=== PATIENT | male | born 1985 | race African-American/Black ===

== ENCOUNTER 2020-02-19 09:53 | Emergency (ER) | payer OTHER ==
[~2020-02-19] VITALS: Ht 175.3 cm; Wt 81.7 kg
[2020-02-19 10:22] LABS: ABSOLUTE EOSINOPHILS 0.1 thou/uL (0.0-0.7); ABSOLUTE LYMPHOCYTES 2.7 thou/uL (0.8-5.3); ABSOLUTE MONOCYTES 0.4 thou/uL (0.0-1.2); ABSOLUTE NEUTROPHILS 1.2 thou/uL (1.6-8.1); EOSINOPHILS 1.8 %; HEMATOCRIT 42.7 % (42.0-52.0); HEMOGLOBIN 14.3 gm/dL (14.0-18.0); MCH 27.8 pg (26.0-34.0); MCHC 33.4 g/dL (28.0-37.0); MCV 83.3 fL (80.0-100.0); MONOCYTES 9.7 %; MPV 8.1 fl. (7.2-11.1); NUCLEATED RBCS 0 /100WBC; PLATELET COUNT* 354 thou/uL (150-400); POLYS 27.5 %; RBC 5.13 mil/uL (4.50-6.00); RDW-CV 14.6 % (10.5-14.5); WBC 4.4 thou/uL (4.0-11.0)
[2020-02-19] MEDS ORDERED: ASPIR-TRIN325 MG PO (10:26)
[2020-02-19 10:30] LABS: CALCIUM 8.3 mg/dL (8.5-10.1)
[2020-02-19 10:41] LABS: ALBUMIN 3.6 g/dL (3.4-5.0); MAGNESIUM 1.8 mg/dL (1.8-2.4); TOTAL BILIRUBIN 0.2 mg/dL (<0.1-1.0); TOTAL PROTEIN 7.4 g/dL (6.4-8.2)
[2020-02-19] MEDS ORDERED: NORCO 5-325 TA1 EAC1 PO (12:17)
[2020-02-19 13:01] VITALS: BP 126/73
--- NOTE | 2020-02-19 17:02 | EKG ---
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1985 Requested By: Omari Price Order Number: [id number] MD: Johnny Hawley Measurements Intervals [place] Rate: 84 P: 27 [place]: 158 QRS: 69 QRSD: 83 T: -42 QT: 327 QTc: 387 Interpretive Statements Sinus rhythm Nonspecific T abnormalities, lateral leads ST elevation, consider early repolarization Baseline wander in lead(s) V5 No previous ECG available for comparison Electronically Signed On 02-19-2020 17:00:44 CDT by Johnny Hawley [email or web address] <ELECTRONICALLY SIGNED> By: Johnny Hawley MD, FAC 02/19/20 1700 0957 0957 Johnny Hawley MD, [facility] /EPI
--- NOTE | 2020-02-19 17:03 | EKG ---
[place] [address] ELECTROCARDIOGRAM REPORT Name: MONICA,TARRELL Room: 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 02/19/20 1701 1235 1235 Johnny Hawley MD, FAC /EPI
== END 2020-02-19 13:01 | disposition home or self-care (01) ==
LOC: M.ERS 09:53
PROVIDERS: Emergency Medicine Emergency Medical Services
DX: R09.1 Pleurisy (principal); F17.210 Nicotine dependence, cigarettes, uncomplicated

== ENCOUNTER 2020-04-25 09:41 | Emergency (ER) | payer OTHER ==
[~2020-04-25] VITALS: Ht 175.3 cm; Wt 81.7 kg
[~2020-04-25 09:41] MED LIST: ASPIR-TRIN325 MG PO; NORCO 5-325 TA1 EAC1 PO
[2020-04-25] MEDS ORDERED: IBUPROFEN 800800 MG PO (11:40)
[2020-04-25 12:18] VITALS: BP 130/73
== END 2020-04-25 12:19 | disposition home or self-care (01) ==
LOC: M.ERS 09:41
DX: L72.3 Sebaceous cyst (principal); Z79.82 Long term (current) use of aspirin; F17.210 Nicotine dependence, cigarettes, uncomplicated

== ENCOUNTER 2021-07-15 09:28 | Emergency (ER) | payer OTHER ==
[~2021-07-15] VITALS: Ht 175.3 cm; Wt 90.7 kg
[~2021-07-15 09:28] MED LIST changes: +IBUPROFEN 800800 MG PO
[2021-07-15 09:44] VITALS: BP 143/88
[2021-07-15] MEDS ORDERED: IBUPROFEN 800800 M1 PO (10:56)
[2021-07-15] MEDS ORDERED: MEDROLDOSEPACK PO (10:56)
[2021-07-15] MEDS ORDERED: FLEXERIL PO (10:56)
== END 2021-07-15 11:10 | disposition home or self-care (01) ==
LOC: M.ERS 09:28
DX: S39.012A Strain of muscle, fascia and tendon of lower back, initial encounter (principal); Z20.822 Contact with and (suspected) exposure to COVID-19; F17.210 Nicotine dependence, cigarettes, uncomplicated; X50.0XXA Overexertion from strenuous movement or load, initial encounter; Y93.89 Activity, other specified; Y92.89 Other specified places as the place of occurrence of the external cause; Y99.8 Other external cause status

== ENCOUNTER 2021-11-22 19:38 | Emergency (ER) | payer OTHER ==
[~2021-11-22] VITALS: Ht 175.3 cm; Wt 81.7 kg
[~2021-11-22 19:38] MED LIST changes: +FLEXERIL PO; +IBUPROFEN 800800 M1 PO; +MEDROLDOSEPACK PO
[2021-11-22 20:31] LABS: URINE BILIRUBIN NEGATIVE (Negative); URINE BLOOD TRACE (Negative); URINE CLARITY CLEAR; URINE COLOR YELLOW; URINE GLUCOSE-RANDOM NEGATIVE (Negative); URINE KETONES NEGATIVE (Negative); URINE LEUKOCYTES-REFLEX NEGATIVE (Negative); URINE NITRITE-REFLEX NEGATIVE (Negative); URINE PROTEIN NEGATIVE (Negative)
[2021-11-22 21:56] LABS: INFLUENZA A ANTIGEN Negative (Negative); INFLUENZA B ANTIGEN Negative (Negative)
[2021-11-22] MEDS ORDERED: TESSALON PERLE100 MG PO (21:57)
[2021-11-22] MEDS ORDERED: ZOFRAN ODT4 MG DISSOLVE (21:57)
[2021-11-22] MEDS ORDERED: FLEXERIL PO (21:57)
[2021-11-22 22:21] VITALS: BP 176/82
== END 2021-11-22 22:21 | disposition home or self-care (01) ==
LOC: M.ERS 19:38
PROVIDERS: Emergency Medicine Emergency Medical Services
DX: U07.1 COVID-19 (principal); R11.2 Nausea with vomiting, unspecified; M54.50 Low back pain, unspecified; F17.210 Nicotine dependence, cigarettes, uncomplicated

== ENCOUNTER 2022-01-10 10:42 | Emergency (ER) | payer OTHER ==
[~2022-01-10] VITALS: Ht 175.3 cm; Wt 81.7 kg
[~2022-01-10 10:42] MED LIST changes: +TESSALON PERLE100 MG PO; +ZOFRAN ODT4 MG DISSOLVE
[2022-01-10 10:57] VITALS: BP 145/78
== END 2022-01-10 11:06 | disposition home or self-care (01) ==
LOC: M.ERS 10:42
DX: J06.9 Acute upper respiratory infection, unspecified (principal); F17.210 Nicotine dependence, cigarettes, uncomplicated